=== PATIENT | female | born 1940 | race American Indian/Alaskan Native ===

== ENCOUNTER 2019-06-07 12:09 | Emergency (ER) | payer MEDICARE ==
[2019-06-07 13:26] LABS: Basophils % (Auto) 0.8 % (0.0-1.8); Eosinophils % (Auto) 0.4 % (0.0-4.3); Hematocrit 34.3 % (30.3-42.9); Hemoglobin 10.7 gm/dl (10.1-14.3); Lymphocytes # (Auto) 1.3 K/mm3 (1.2-5.4); Lymphocytes % (Auto) 23.6 % (13.4-35.0); Mean Corpuscular HGB Conc 31 % (30-34); Mean Corpuscular Volume 76 fl (79-97); Monocytes # (Auto) 0.3 K/mm3 (0.0-0.8); Monocytes % (Auto) 5.2 % (0.0-7.3); Platelet Count 209 K/mm3 (140-440); Red Blood Count 4.53 M/mm3 (3.65-5.03); Red Cell Distribution Width 18.2 % (13.2-15.2)
[2019-06-07 13:27] LABS: INR 0.99 (0.87-1.13)
[2019-06-07 13:28] LABS: Partial Thromboplastin Time 29.9 Sec. (24.2-36.6)
--- NOTE | 2019-06-07 13:31 | XRay Report ---
"HISTORY: Fall COMPARISON: None. TECHNIQUE: AP view of the pelvis FINDINGS: Bones: No fracture or dislocation. Joint spaces: Maintained. Soft tissues: No significant abnormality. Additional findings: None. IMPRESSION: 1. No significant abnormality. Signer Name: Luis A Menendez MD Signed: 06/07/2019 1:26 PM Workstation Name: [email or web address] | [id number]"
--- NOTE | 2019-06-07 13:35 | XRay Report ---
CHEST 1 VIEW INDICATION: falls COMPARISON: None FINDINGS: Support devices: None Heart: Normal Lungs/Pleura: No acute pulmonary or pleural findings. IMPRESSION: 1. Tortuous thoracic aorta. No acute disease. Signer Name: Star Chavez MD Signed: 06/07/2019 1:31 PM Workstation Name: [id number]
[2019-06-07 13:41] LABS: Albumin 4.1 g/dL (3.9-5); Calcium 9.1 mg/dL (8.4-10.2)
--- NOTE | 2019-06-07 14:09 | Cat Scan Report ---
CT HEAD WITHOUT CONTRAST INDICATION / CLINICAL INFORMATION: Trauma. Patient fell. Altered mental status. TECHNIQUE: All CT scans at this location are performed using CT dose reduction for ALARA by means of automated e xposure control. COMPARISON: None available. FINDINGS: HEMORRHAGE: No evidence of intracranial hemorrhage or extra-axial fluid collection. EXTRA-AXIAL SPACES: Cortical sulci and sylvian fissures are enlarged reflecting a degree of parenchym al volume loss which is within normal limits for the patient's age of 78 years. Basilar cisterns have an unremarkable appearance. VENTRICULAR SYSTEM: The third and lateral ventricles are enlarged reflecting resonance of age related parenchymal volume loss. CEREBRAL PARENCHYMA: Periventricular and deep white matter lucency is observed. This is probably seco ndary to microvascular ischemic change. There is no indication of recent infarction. 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 These are present in a bilateral gangliocapsular distribution. The largest of these is located near the junction of the head of caudate nucleus and anterior limb o f the internal capsule on the left. MIDLINE SHIFT OR HERNIATION: There is no mass effect. CEREBELLUM / BRAINSTEM: Brainstem and cerebellum have an unremarkable appearance. INTRACRANIAL VESSELS:Calcified atherosclerotic plaque is present along the course of the cavernous se gments of both internal carotid arteries. Similar findings are seen at the distal vertebral arteries. ORBITS: The orbits have an unremarkable appearance. SOFT TISSUES of HEAD: No significant abnormality. CALVARIUM: Evaluation of bone windows reveals no abnormalities. 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 PARANASAL SINUSES / MASTOID AIR CELLS: Mild mucosal disease is present within a posterior ethmoid air cell on the left. Visualized Paranasal sinuses are otherwise free from inflammatory mucosal disease. Mastoid air cells are normally pneumatized. IMPRESSION: 1. Age-related parenchymal volume loss and microvascular ischemic change. 2. 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 3. No acute intracranial abnormalities are identified. Signer Name: Luis Gordon MD Signed: 06/07/2019 2:05 PM Workstation Name: [id number]
--- NOTE | 2019-06-07 15:25 | Emergency Department Report ---
ED General Adult HPI - General Chief complaint: Fall Stated complaint: FALL/DIZZINESS/LIGHTHEADED Time Seen by Provider: 06/07/19 12:38 Source: patient Mode of arrival: Ambulatory Limitations: No Limitations - History of Present Illness Initial comments: She presents to the emergency department for evaluation of falls. Per the patient's granddaughter she has fallen 3 times this month. Patient states she just loses her balance and falls and states she is not really concerned about it. Patient denies any chest pain, shortness breath, abdominal pain, slurred speech, facial droop, or weakness. -: Gradual Severity scale (0 -10): 0 Consistency: constant Improves with: none Worsens with: none Associated Symptoms: denies other symptoms Treatments Prior to Arrival: none - Related Data Allergies Allergy/AdvReac Type Severity Reaction Status Date / Time lisinopril Allergy Angioedema Verified 06/07/19 12:11 ED Review of Systems ROS: Stated complaint: FALL/DIZZINESS/LIGHTHEADED Other details as noted in HPI Comment: All other systems reviewed and negative Constitutional: denies: chills, fever Eyes: denies: eye pain, eye discharge, vision change ENT: denies: ear pain, throat pain Respiratory: denies: cough, shortness of breath, wheezing Cardiovascular: denies: chest pain, palpitations Endocrine: no symptoms reported Gastrointestinal: denies: abdominal pain, nausea, diarrhea Genitourinary: denies: urgency, dysuria, discharge Musculoskeletal: denies: back pain, joint swelling, arthralgia Skin: denies: rash, lesions Neurological: denies: headache, weakness, paresthesias Psychiatric: denies: anxiety, depression Hematological/Lymphatic: denies: easy bleeding, easy bruising ED Past Medical Hx - Past Medical History Previous Medical History?: Yes Hx Hypertension: Yes Hx CVA: Yes Hx Diabetes: Yes Hx Dementia: Yes Additional medical history: High cholesterol, Aneurysm - Surgical History Past Surgical History?: Yes Hx Appendectomy: No Additional Surgical History: Cyst removal - Social History Smoking Status: Current Some Day Smoker Substance Use Type: None ED Physical Exam - General Limitations: No Limitations General appearance: alert, in no apparent distress - Head Head exam: Present: atraumatic, normocephalic - Eye Eye exam: Present: normal appearance, PERRL, EOMI - ENT ENT exam: Present: mucous membranes moist - Neck Neck exam: Present: normal inspection - Respiratory Respiratory exam: Present: normal lung sounds bilaterally. Absent: respiratory distress - Cardiovascular Cardiovascular Exam: Present: regular rate, normal rhythm. Absent: systolic murmur, diastolic murmur, rubs, gallop - GI/Abdominal GI/Abdominal exam: Present: soft, normal bowel sounds. Absent: distended, tenderness - Extremities Exam Extremities exam: Present: normal inspection - Back Exam Back exam: Present: normal inspection - Neurological Exam Neurological exam: Present: alert, oriented X3, CN II-XII intact. Absent: motor sensory deficit - Psychiatric Psychiatric exam: Present: normal affect, normal mood - Skin Skin exam: Present: warm, dry, intact, normal color. Absent: rash ED Course Vital Signs 06/07/19 06/07/19 06/07/19 12:23 12:45 13:00 Temperature 97.6 F Pulse Rate 63 59 L 62 Respiratory 18 16 12 Rate Blood Pressure 141/91 107/64 107/64 O2 Sat by Pulse 97 98 98 Oximetry 06/07/19 06/07/19 06/07/19 13:16 13:33 13:45 Temperature Pulse Rate 56 L 57 L 56 L Respiratory 14 12 15 Rate Blood Pressure 116/70 117/68 130/72 O2 Sat by Pulse 98 100 97 Oximetry ED Medical Decision Making - Lab Data Result diagrams: 06/07/19 12:47 06/07/19 12:47 Lab Results 06/07/19 06/07/19 06/07/19 Range/Units 12:47 12:47 12:47 WBC 5.3 (4.5-11.0) K/mm3 RBC 4.53 (3.65-5.03) M/mm3 Hgb 10.7 (10.1-14.3) gm/dl Hct 34.3 (30.3-42.9) % MCV 76 L (79-97) fl MCH 24 L (28-32) pg MCHC 31 (30-34) % RDW 18.2 H (13.2-15.2) % Plt Count 209 (140-440) K/mm3 Lymph % (Auto) 23.6 (13.4-35.0) % Rice % (Auto) 5.2 (0.0-7.3) % Eos % (Auto) 0.4 (0.0-4.3) % Baso % (Auto) 0.8 (0.0-1.8) % Lymph # 1.3 (1.2-5.4) K/mm3 Rice # 0.3 (0.0-0.8) K/mm3 Eos # 0.0 (0.0-0.4) K/mm3 Baso # 0.0 (0.0-0.1) K/mm3 Seg Neutrophils % 70.0 (40.0-70.0) % Seg Neutrophils # 3.7 (1.8-7.7) K/mm3 PT 12.8 (12.2-14.9) Sec. INR 0.99 (0.87-1.13) APTT 29.9 (24.2-36.6) Sec. Sodium 139 (137-145) mmol/L Potassium 4.1 (3.6-5.0) mmol/L Chloride 104.6 (98-107) mmol/L Carbon Dioxide 21 L (22-30) mmol/L Anion Gap 18 mmol/L BUN 16 (7-17) mg/dL Creatinine 1.4 H (0.7-1.2) mg/dL Estimated GFR 36 ml/min BUN/Creatinine Ratio 11 % Glucose 107 H (65-100) mg/dL Calcium 9.1 (8.4-10.2) mg/dL Phosphorus (2.5-4.5) mg/dL Magnesium (1.7-2.3) mg/dL Total Bilirubin 0.30 (0.1-1.2) mg/dL AST 11 (5-40) units/L ALT 5 L (7-56) units/L Alkaline Phosphatase 91 (35-129) units/L Troponin T (0.00-0.029) ng/mL NT-Pro-B Natriuret Pep (0-900) pg/mL Total Protein 7.4 (6.3-8.2) g/dL Albumin 4.1 (3.9-5) g/dL Albumin/Globulin Ratio 1.2 % Salicylates (2.8-20.0) mg/dL Acetaminophen (10.0-30.0) ug/mL Plasma/Serum Alcohol (0-0.07) % 06/07/19 06/07/19 06/07/19 Range/Units 12:47 12:47 12:47 WBC (4.5-11.0) K/mm3 RBC (3.65-5.03) M/mm3 Hgb (10.1-14.3) gm/dl Hct (30.3-42.9) % MCV (79-97) fl MCH (28-32) pg MCHC (30-34) % RDW (13.2-15.2) % Plt Count (140-440) K/mm3 Lymph % (Auto) (13.4-35.0) % Rice % (Auto) (0.0-7.3) % Eos % (Auto) (0.0-4.3) % Baso % (Auto) (0.0-1.8) % Lymph # (1.2-5.4) K/mm3 Rice # (0.0-0.8) K/mm3 Eos # (0.0-0.4) K/mm3 Baso # (0.0-0.1) K/mm3 Seg Neutrophils % (40.0-70.0) % Seg Neutrophils # (1.8-7.7) K/mm3 PT (12.2-14.9) Sec. INR (0.87-1.13) APTT (24.2-36.6) Sec. Sodium (137-145) mmol/L Potassium (3.6-5.0) mmol/L Chloride (98-107) mmol/L Carbon Dioxide (22-30) mmol/L Anion Gap mmol/L BUN (7-17) mg/dL Creatinine (0.7-1.2) mg/dL Estimated GFR ml/min BUN/Creatinine Ratio % Glucose (65-100) mg/dL Calcium (8.4-10.2) mg/dL Phosphorus 3.40 (2.5-4.5) mg/dL Magnesium 1.90 (1.7-2.3) mg/dL Total Bilirubin (0.1-1.2) mg/dL AST (5-40) units/L ALT (7-56) units/L Alkaline Phosphatase (35-129) units/L Troponin T < 0.010 (0.00-0.029) ng/mL NT-Pro-B Natriuret Pep 172.4 (0-900) pg/mL Total Protein (6.3-8.2) g/dL Albumin (3.9-5) g/dL Albumin/Globulin Ratio % Salicylates < 0.3 L (2.8-20.0) mg/dL Acetaminophen (10.0-30.0) ug/mL Plasma/Serum Alcohol (0-0.07) % 06/07/19 06/07/19 06/07/19 Range/Units 12:47 12:47 14:19 WBC (4.5-11.0) K/mm3 RBC (3.65-5.03) M/mm3 Hgb (10.1-14.3) gm/dl Hct (30.3-42.9) % MCV (79-97) fl MCH (28-32) pg MCHC (30-34) % RDW (13.2-15.2) % Plt Count (140-440) K/mm3 Lymph % (Auto) (13.4-35.0) % Rice % (Auto) (0.0-7.3) % Eos % (Auto) (0.0-4.3) % Baso % (Auto) (0.0-1.8) % Lymph # (1.2-5.4) K/mm3 Rice # (0.0-0.8) K/mm3 Eos # (0.0-0.4) K/mm3 Baso # (0.0-0.1) K/mm3 Seg Neutrophils % (40.0-70.0) % Seg Neutrophils # (1.8-7.7) K/mm3 PT (12.2-14.9) Sec. INR (0.87-1.13) APTT (24.2-36.6) Sec. Sodium (137-145) mmol/L Potassium (3.6-5.0) mmol/L Chloride (98-107) mmol/L Carbon Dioxide (22-30) mmol/L Anion Gap mmol/L BUN (7-17) mg/dL Creatinine (0.7-1.2) mg/dL Estimated GFR ml/min BUN/Creatinine Ratio % Glucose (65-100) mg/dL Calcium (8.4-10.2) mg/dL Phosphorus (2.5-4.5) mg/dL Magnesium (1.7-2.3) mg/dL Total Bilirubin (0.1-1.2) mg/dL AST (5-40) units/L ALT (7-56) units/L Alkaline Phosphatase (35-129) units/L Troponin T < 0.010 (0.00-0.029) ng/mL NT-Pro-B Natriuret Pep (0-900) pg/mL Total Protein (6.3-8.2) g/dL Albumin (3.9-5) g/dL Albumin/Globulin Ratio % Salicylates (2.8-20.0) mg/dL Acetaminophen < 5.0 L (10.0-30.0) ug/mL Plasma/Serum Alcohol < 0.01 (0-0.07) % - EKG Data -: EKG Interpreted by [place] EKG shows normal: sinus rhythm Rate: normal - Radiology Data Radiology results: report reviewed Referring Physician: DAX GARCIA Patient Name: DANIELLE HINES Date of : 1940 Sex: Female Report Date: 2019-06-07 Report Status: Finalized [address] [address] XRay Report Signed Patient: DANIELLE HINES MR#: [id number] : 1940 Acct:[id number] Age/Sex: 78 / F ADM Date: 06/07/19 Loc: ED Attending Dr: Ordering Physician: DAX GARCIA MD Date of Service: 06/07/19 Procedure(s): XR pelvis 1-2V Accession Number(s): [id number] cc: DAX GARCIA MD Fluoro Time In Minutes: HISTORY: Fall COMPARISON: None. TECHNIQUE: AP view of the pelvis FINDINGS: Bones: No fracture or dislocation. Joint spaces: Maintained. Soft tissues: No significant abnormality. Additional findings: None. IMPRESSION: 1. No significant abnormality. Signer Name: Luis A Menendez MD Signed: 06/07/2019 1:26 PM Workstation Name: [id number] Transcribed By: RAUL Dictated By: Luis A Menendez MD Electronically Authenticated By: Luis A Menendez MD Signed Date/Time: 06/07/191325 DD/ 25 TD/TT: ] Referring Physician: DAX GARCIA Patient Name: DANIELLE HINES Date of : 1940 Sex: Female Report Date: 2019-06-07 Report Status: Finalized [facility] [address] [place] [address] Cat Scan Report Signed Patient: ADNIELLE HINES MR#: [id number] : 1940 Acct:[id number] Age/Sex: 78 / F ADM Date: 06/07/19 Loc: ED Attending Dr: Ordering Physician: DAX GARCIA MD Date of Service: 06/07/19 Procedure(s): CT head/brain wo con Accession Number(s): [id number] cc: DAX GARCIA MD CT HEAD WITHOUT CONTRAST INDICATION / CLINICAL INFORMATION: Trauma. Patient fell. Altered mental status. TECHNIQUE: All CT scans at this location are performed using CT dose reduction for ALARA by means of automated exposure control. COMPARISON: None available. FINDINGS: HEMORRHAGE: No evidence of intracranial hemorrhage or extra-axial fluid collection. EXTRA-AXIAL SPACES: Cortical sulci and sylvian fissures are enlarged reflecting a degree of parenchymal volume loss which is within normal limits for the patient's age of 78 years. Basilar cisterns have an unremarkable appearance. VENTRICULAR SYSTEM: The third and lateral ventricles are enlarged reflecting resonance of age related parenchymal volume loss. CEREBRAL PARENCHYMA: Periventricular and deep white matter lucency is observed. This is probably secondary to microvascular ischemic change. There is no indication of recent infarction. 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 These are present in a bilateral gangliocapsular distribution. The largest of these is located near the junction of the head of caudate nucleus and anterior limb of the internal capsule on the left. MIDLINE SHIFT OR HERNIATION: There is no mass effect. CEREBELLUM / BRAINSTEM: Brainstem and cerebellum have an unremarkable appearance. INTRACRANIAL VESSELS:Calcified atherosclerotic plaque is present along the course of the cavernous segments of both internal carotid arteries. Similar findings are seen at the distal vertebral arteries. ORBITS: The orbits have an unremarkable appearance. SOFT TISSUES of HEAD: No significant abnormality. CALVARIUM: Evaluation of bone windows reveals no abnormalities. Incidental note is made of hyperostosis frontalis interna. PARANASAL SINUSES / MASTOID AIR CELLS: Mild mucosal disease is present within a posterior ethmoid air cell on the left. Visualized Paranasal sinuses are otherwise free from inflammatory mucosal disease. Mastoid air cells are normally pneumatized. IMPRESSION: 1. Age-related parenchymal volume loss and microvascular ischemic change. 2. 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 3. No acute intracranial abnormalities are identified. Signer Name: Luis Gordon MD Signed: 06/07/2019 2:05 PM Workstation Name: [id number] Transcribed By: Dictated By: Luis Gordon MD Electronically Authenticated By: Luis Gordon MD Signed Date/Time: 06/07/19 1405 DD/ 1402 TD/TT: Referring Physician: DAX GARCIA Patient Name: DANIELLE HINES Date of : 1940 Sex: Female Report Date: 2019-06-07 Report Status: [place] [address] XRay Report Signed Patient: DANIELLE HINES MR#: [id number] : 1940 Acct:[id number] Age/Sex: 78 / F ADM Date: 06/07/19 Loc: ED Attending Dr: Ordering Physician: DAX GARCIA MD Date of Service: 06/07/19 Procedure(s): XR chest 1V ap Accession Number(s): [id number] cc: DAX GARCIA MD Fluoro Time In Minutes: CHEST 1 VIEW INDICATION: falls COMPARISON: None FINDINGS: Support devices: None Heart: Normal Lungs/Pleura: No acute pulmonary or pleural findings. IMPRESSION: 1. Tortuous thoracic aorta. No acute disease. Signer Name: Star Chavez MD Signed: 06/07/2019 1:31 PM Workstation Name: [id number] Transcribed By: TM Dictated By: Star Chavez MD Electronically Authenticated By: Star Chavez MD Signed Date/Time: 06/07/19 1331 DD/ 1330 TD/TT: - Medical Decision Making This was also the patient and her Granddaughter Critical care attestation.: If time is entered above; I have spent that time in minutes in the direct care of this critically ill patient, excluding procedure time. ED Disposition Clinical Impression: Falls frequently Disposition: - TO HOME OR SELFCARE Is pt being admited?: No Does the pt Need Aspirin: No Condition: Stable Instructions: Fall Prevention for Older Adults (ED) Additional Instructions: return if worse These follow up with her primary care physician Dr. Hernández at [facility] Referrals: [facility] [Other] - 3-5 Days [facility] [Provider Group] - 3-5 Days [facility] [Provider Group] - 3-5 Days Time of Disposition: 17:01
[2019-06-07 16:51] LABS: Bilirubin,Urine NEG (Negative); Blood,Urine NEG (Negative); Color,Urine Yellow (Yellow); Hyaline Casts,Urine 3 /LPF; Mucus,Urine FEW /HPF
[2019-06-07 16:54] LABS: Amphetamine Screen,Urine PRESUMPTIVE NEGATIVE; Benzodiazepines Screen,Urine PRESUMPTIVE NEGATIVE; Cannabinoid Screen,Urine PRESUMPTIVE NEGATIVE; Cocaine Screen,Urine PRESUMPTIVE NEGATIVE; Methadone Screen,Urine PRESUMPTIVE NEGATIVE; Opiate Screen,Urine PRESUMPTIVE NEGATIVE
[2019-06-07 17:29] VITALS: BP 153/83
== END 2019-06-07 17:29 | disposition home or self-care (01) ==
LOC: ED 12:09
DX: R42 Dizziness and giddiness (principal); I10 Essential (primary) hypertension; I25.2 Old myocardial infarction; E11.9 Type 2 diabetes mellitus without complications; F03.90 Unspecified dementia, unspecified severity, without behavioral disturbance, psychotic disturbance, mood disturbance, and anxiety; E78.00 Pure hypercholesterolemia, unspecified; F17.200 Nicotine dependence, unspecified, uncomplicated; Z88.6 Allergy status to analgesic agent; W19.XXXA Unspecified fall, initial encounter; Z91.81 History of falling; Y93.89 Activity, other specified; Y92.89 Other specified places as the place of occurrence of the external cause; Y99.8 Other external cause status
CPT/HCPCS: 36415; 70450; 71045; 72170; 80053; 80307; 80320; 81001; 83735; 83880; 84100; 84484; 85025; 85610; 85730; 93005; 93010; G0480

== ENCOUNTER 2021-09-04 19:55 | Emergency (ER) | payer MEDICARE ==
[2021-09-04] MEDS ORDERED: SODIUM CHLORIDE 0.9% 1000 ML 1,000 ML IV ONE (20:18)
--- NOTE | 2021-09-04 20:18 | Emergency Department Report ---
ED Syncope HPI - General Chief Complaint: Syncope Time Seen by Provider: 09/04/21 20:17 - History of Present Illness Initial Comments: Patient presented by EMS secondary to a syncopal event versus near syncopal event. She felt very lightheaded. Patient does not think she actually passed out or lost consciousness completely. Family reported that she did. They are not here to discuss this. EMS was called. There was no history of injury. There was no history of vomiting or diarrhea recently. The patient does have some hemorrhoids and there was some concern as to whether she had blood loss that made her pass out. She has no chest pain or shortness of breath. Patient has no complaints upon arrival. It should be noted that her history is somewhat limited. She initially tells me that she does not feel well. Then she tells me that she feels great and wants to go home. - Related Data Allergies/Adverse Reactions: Allergies lisinopril Allergy (Verified 06/07/19 12:11) Angioedema ED Review of Systems ROS: Stated complaint: Other details as noted in HPI Comment: All other systems reviewed and negative Constitutional: denies: fever Eyes: denies: eye pain ENT: denies: throat pain Respiratory: denies: cough Cardiovascular: denies: chest pain Endocrine: denies: unexplained weight loss Gastrointestinal: denies: abdominal pain Genitourinary: denies: urgency Musculoskeletal: denies: back pain Skin: denies: rash Neurological: denies: headache Hematological/Lymphatic: denies: easy bruising ED Past Medical Hx - Past Medical History Hx Hypertension: Yes Hx CVA: Yes Hx Diabetes: Yes Hx Dementia: Yes Additional medical history: High cholesterol, Aneurysm - Surgical History Hx Appendectomy: No Additional Surgical History: Cyst removal - Family History Family history: no significant (Per patient) - Social History Smoking Status: Never Smoker ED Physical Exam - General Limitations: No Limitations, Other (Pulse ox is noted and normal) General appearance: alert, in no apparent distress - Head Head exam: Present: atraumatic, normocephalic - Eye Eye exam: Present: normal appearance, EOMI. Absent: scleral icterus - ENT ENT exam: Present: normal exam, mucous membranes moist - Neck Neck exam: Present: normal inspection. Absent: meningismus - Respiratory Respiratory exam: Present: normal lung sounds bilaterally. Absent: respiratory distress - Cardiovascular Cardiovascular Exam: Present: regular rate, normal rhythm - GI/Abdominal GI/Abdominal exam: Present: soft. Absent: distended, tenderness - Extremities Exam Extremities exam: Present: normal capillary refill - Back Exam Back exam: Absent: CVA tenderness (R), CVA tenderness (L) - Neurological Exam Neurological exam: Present: alert, altered, CN II-XII intact, reflexes normal - Psychiatric Psychiatric exam: Present: normal affect, normal mood - Skin Skin exam: Present: warm, dry ED Course Vital Signs 09/04/21 20:02 Temperature 98.8 F Pulse Rate 77 Respiratory 18 Rate Blood Pressure 154/82 O2 Sat by Pulse 98 Oximetry - Reevaluation(s) Reevaluation #1: 09/04/21 19:20 EMS was met upon arrival. IV and labs were ordered Reevaluation #2: 09/04/21 21:13 Labs are pending. Reevaluation #3: 09/04/21 21:56 Labs are noted. Patient was discharged. ED Medical Decision Making - Lab Data Result diagrams: 09/04/21 20:47 09/04/21 20:47 Rhythm strip: Normal sinus rhythm without ectopy per monitor observe 10 seconds. - Medical Decision Making Patient was sent in for syncope. She denies syncope. She is also demented and cannot provide a cogent history. Regardless, there is no obvious etiology for syncope. Patient does not have any evidence of dysrhythmia based on monitor here. There is no evidence of acute kidney injury or dehydration. She is not anemic. There was some concern raised about blood loss given her hemorrhoids and bleeding. Again, she is not anemic. She is not hypotensive. There is no evidence of infectious pathology. She does not have neurologic symptoms or deficits suggestive of stroke at this time. Critical Care Time: No Critical care attestation.: If time is entered above; I have spent that time in minutes in the direct care of this critically ill patient, excluding procedure time. ED Disposition Clinical Impression: Syncope Qualifiers: Syncope type: unspecified Qualified Code(s): R55 - Syncope and collapse Disposition: 01 HOME / SELF CARE / HOMELESS Is pt being admited?: No Condition: Stable Instructions: Syncope (ED), Syncope, Eima-my-Dhzy Additional Instructions: Push fluids. Return for problems. Follow-up with your regular doctor for recheck and further management. If you do not have a regular doctor, follow-up with referral physician. Referrals: PRIMARY CARE, [Primary Care Provider] - 3-5 Days JUANITA CHAU MD [Staff Physician] - 3-5 Days
[2021-09-04 20:58] LABS: Hematocrit 34.1 % (30.3-42.9); Hemoglobin 10.5 gm/dl (10.1-14.3); Mean Corpuscular HGB Conc 31 % (30-34); Mean Corpuscular Volume 80 fl (79-97); Platelet Count 170 K/mm3 (140-440); Red Blood Count 4.27 M/mm3 (3.65-5.03); Red Cell Distribution Width 16.2 % (13.2-15.2)
[2021-09-04 21:45] LABS: Calcium 9.1 mg/dL (8.4-10.2)
[2021-09-05 01:48] VITALS: BP 187/95
--- NOTE | 2021-09-06 08:40 | Electrocardiograph Report ---
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
== END 2021-09-05 00:19 | disposition home or self-care (01) ==
LOC: ED 19:55 → EDBD 19:55 → ED 09-05 00:19
DX: R55 Syncope and collapse (principal); I10 Essential (primary) hypertension; E11.9 Type 2 diabetes mellitus without complications; E78.00 Pure hypercholesterolemia, unspecified; Z88.8 Allergy status to other drugs, medicaments and biological substances; Z79.899 Other long term (current) drug therapy
CPT/HCPCS: 36415; 80048; 85027; 93005; 96360; 99284; J7030; Q0162